=== PATIENT | female | born 1985 | race Caucasian/White ===

== ENCOUNTER 2022-07-10 19:55 | Inpatient (IN) ==
[2022-07-10] MEDS ORDERED: LORazepam 2 MG/1 ML VIAL IV STA (20:14)
[2022-07-10] MEDS ORDERED: ONDANSETRON 4 MG/2 ML VIAL IV STA (20:14)
[2022-07-10] MEDS ORDERED: methylPREDNISolone SOD SUC 125 MG/2 ML VIAL IV STA (20:14)
[2022-07-10] MEDS ORDERED: ALBUTEROL/IPRATROPIUM 3 ML NEB RESP TX STA (20:14)
[2022-07-10] MEDS ORDERED: PIPERACILLIN/TAZOBACTAM 3,375 MG in SODIUM CHLORIDE 0.9% 100 ML IV STA (20:55)
[2022-07-10 21:05] LABS: Basophils % 0.2 % (0.0-0.8); Eosinophils # 0.1 10*3/uL (0.0-0.87); Eosinophils % 0.6 % (0.00-10.9); Hematocrit 33.7 VOL% (35.7-47.0); Immature Granulocytes % 0.4 %; Immature Granulocytes Absolute 0.03 #; Lymphocytes # 1.3 10*3/uL (1.4-4.0); Lymphocytes % 15.4 % (21.3-54.2); Mean Corpuscular HGB Conc 32.6 GM/DL (32-36); Mean Corpuscular Volume 85.8 FL (87-102); Mean Platelet Volume 9.1 FL (9.6-12.0); Monocytes # 0.4 10*3/uL (0.11-0.8); Neutrophils % 78.4 % (38.7-73.9); Platelet Count 284 T/CUMM (130-400); Red Blood Count 3.93 MC/CUMM (3.8-5.5); Red Cell Distribution Width 15.9 % (9.3-17.3); White Blood Count 8.2 T/CUMM (4-12)
[2022-07-10 21:29] LABS: Albumin 2.7 G/DL (3.4-5.0); Bilirubin,Total 0.7 MG/DL (0.20-1.00); Osmolality,Calculated 276.4 MOS/KG (273-304); Potassium 3.2 MMOL/L (3.5-5.1); Total Protein 6.8 G/DL (6.4-8.2)
[2022-07-10 21:33] LABS: Bacteria,Urine Many /HPF (Few); Mucus,Urine Occasional /LPF (Occasional); Squamous Epithelial Cell,Urine Occasional /HPF (0-10)
[2022-07-10 21:35] LABS: Urine Color Yellow (Yellow)
[2022-07-10 21:36] LABS: Glucose,Urine (UA) Negative (Negative); Ketones,Urine 15 mg/dL (Negative); Protein,Urine Negative (Negative); Urine Appearance Clear (Clear); Urine pH 6.5 (4.5-8.0)
[2022-07-10 21:37] LABS: Bilirubin,Urine Negative (Negative); Blood, Urine Negative (Negative); Nitrite,Urine Negative (Negative)
[2022-07-10] MEDS ORDERED: POTASSIUM CHLORIDE 20 MEQ TABLET PO STA (21:39)
[2022-07-10 22:00] LABS: HIV Antigen/Antibody Result Nonreactive (Nonreactive)
[2022-07-10] MEDS ORDERED: FUROSEMIDE 40 MG/4 ML VIAL IV STA (22:00)
[2022-07-10] MEDS ORDERED: LACTATED RINGERS 500 ML IV ONE (22:07)
[2022-07-10] MEDS ORDERED: POTASSIUM BICARB EFFERVESCENT 20 MEQ TAB.EFF PO STA (22:07)
[2022-07-10 22:09] LABS: Barbiturates Screen,Urine Negative (Negative); Benzodiazepines Screen,Urine Negative (Negative); Cannabinoid Screen,Urine Positive (Negative); Opiate Screen,Urine Negative (Negative); Phencyclidine Screen,Urine Negative (Negative)
[2022-07-10] MEDS ORDERED: POTASSIUM BICARB EFFERVESCENT 20 MEQ TAB.EFF ONE (22:09)
[2022-07-10] MEDS ORDERED: ENOXAPARIN 100 MG/ML SYRINGE SUBCUT STA (23:16)
[2022-07-10] MEDS ORDERED: ENOXAPARIN 60 MG/0.6 ML SYRINGE ONE (23:17)
[2022-07-11] MEDS ORDERED: ZALEPLON 5 MG CAPSULE PO PRN (00:06)
[2022-07-11] MEDS ORDERED: ONDANSETRON 4 MG/2 ML VIAL IV PRN (00:06)
[2022-07-11] MEDS ORDERED: diphenhydrAMINE CAP 25 MG CAPSULE PO PRN (00:06)
[2022-07-11] MEDS ORDERED: hydrALAZINE 20 MG/1 ML VIAL IV PRN (00:06)
[2022-07-11] MEDS ORDERED: NICOTINE 21 MG/24 HR PATCH TRANSDERM PRN (00:06)
[2022-07-11] MEDS: AZITHROMYCIN INJ 500 MG in SODIUM CHLORIDE 0.9% 250 ML IV SCH (00:40)
[2022-07-11] MEDS: ALBUTEROL/IPRATROPIUM 3 ML NEB RESP TX SCH ×4 (01:21→19:45)
[2022-07-11] MEDS: SODIUM CHLORIDE 0.9% 1,000 ML IV SCH ×2 (01:25→10:12)
[2022-07-11] MEDS: guaiFENesin/DM ER 600-30 MG TABLET PO PRN ×5 (02:01→21:29)
[2022-07-11 04:58] LABS: Hematocrit 32.8 VOL% (35.7-47.0); Hemoglobin 10.4 GM/DL (12.0-16.0); Immature Granulocytes % 0.5 %; Immature Granulocytes Absolute 0.04 #; Lymphocytes # 0.3 10*3/uL (1.4-4.0); Lymphocytes % 4.4 % (21.3-54.2); Mean Corpuscular HGB Conc 31.7 GM/DL (32-36); Mean Corpuscular Volume 88.6 FL (87-102); Mean Platelet Volume 9.1 FL (9.6-12.0); Monocytes # 0.1 10*3/uL (0.11-0.8); Monocytes % 1.1 % (1.7-12.7); Platelet Count 278 T/CUMM (130-400); White Blood Count 7.5 T/CUMM (4-12)
[2022-07-11 05:15] LABS: Calcium 8.1 MG/DL (8.5-10.1); Osmolality,Calculated 284.4 MOS/KG (273-304)
[2022-07-11 05:33] LABS: Hypochromia Slight; Lymphocytes 1 % (20-55); Microcytosis Slight; Platelet Estimate Adequate; Total Cells Counted 100
[2022-07-11] MEDS: PIPERACILLIN/TAZOBACTAM 4,500 MG in SODIUM CHLORIDE 0.9% 100 ML IV SCH ×3 (06:14→21:28)
[2022-07-11] MEDS: ENOXAPARIN 40 MG/0.4 ML SYRINGE SUBCUT SCH (08:40)
[2022-07-11] MEDS: MORPHINE 2 MG/1 ML SYRINGE IV PRN ×2 (08:41→14:01)
[2022-07-11] MEDS: DOCUSATE SODIUM 100 MG CAPSULE PO SCH ×2 (08:41→21:28)
[2022-07-11] MEDS: PANTOPRAZOLE 40 MG TABLET PO SCH (08:41)
[2022-07-11] MEDS ORDERED: POTASSIUM CHLORIDE 20 MEQ TABLET PO ONE (09:43)
[2022-07-11 10:02] LABS: % Iron Saturation 5.4 % (18-50)
[2022-07-11] MEDS ORDERED: ZINC OXIDE PASTE 113 GM TUBE TOP PRN (11:34)
[2022-07-11] MEDS: BENZONATATE 100 MG CAPSULE PO SCH ×2 (15:43→21:29)
[2022-07-12] MEDS: ALBUTEROL/IPRATROPIUM 3 ML NEB RESP TX SCH ×4 (00:20→22:37)
[2022-07-12] MEDS: AZITHROMYCIN INJ 500 MG in SODIUM CHLORIDE 0.9% 250 ML IV SCH (02:34)
[2022-07-12] MEDS: MORPHINE 2 MG/1 ML SYRINGE IV PRN ×3 (02:41→10:18)
[2022-07-12] MEDS: LORazepam 2 MG/1 ML VIAL IV PRN ×3 (04:59→09:55)
[2022-07-12 05:04] LABS: Basophils % 0.1 % (0.0-0.8); Hematocrit 32.3 VOL% (35.7-47.0); Hemoglobin 9.9 GM/DL (12.0-16.0); Immature Granulocytes Absolute 0.22 #; Lymphocytes # 1.3 10*3/uL (1.4-4.0); Lymphocytes % 6.2 % (21.3-54.2); Mean Corpuscular HGB Conc 30.7 GM/DL (32-36); Mean Corpuscular Volume 92.6 FL (87-102); Monocytes # 1.1 10*3/uL (0.11-0.8); Monocytes % 5.2 % (1.7-12.7); Neutrophils % 87.5 % (38.7-73.9); Platelet Count 384 T/CUMM (130-400); Red Blood Count 3.49 MC/CUMM (3.8-5.5); Red Cell Distribution Width 16.8 % (9.3-17.3); White Blood Count 21.3 T/CUMM (4-12)
[2022-07-12] MEDS: PIPERACILLIN/TAZOBACTAM 4,500 MG in SODIUM CHLORIDE 0.9% 100 ML IV SCH (05:11)
[2022-07-12 05:26] LABS: Albumin 2.5 G/DL (3.4-5.0); Bilirubin,Direct 0.15 MG/DL (0.0-0.20); Bilirubin,Indirect 0.3 MG/DL (0.0-1.0); Bilirubin,Total 0.4 MG/DL (0.20-1.00); Calcium 7.9 MG/DL (8.5-10.1); Osmolality,Calculated 276.5 MOS/KG (273-304); Potassium 3.8 MMOL/L (3.5-5.1); Total Protein 6.8 G/DL (6.4-8.2)
[2022-07-12 05:38] LABS: Hypochromia Slight; Lymphocytes 7 % (20-55); Platelet Estimate Adequate; Total Cells Counted 100
[2022-07-12] MEDS ORDERED: SODIUM CHLORIDE 0.9% 1,000 ML IV ONE (07:29)
[2022-07-12 07:57] LABS: Arterial Base Excess iSTAT -4 MMOL/L (-2.5-2.5); Arterial Bicarbonate iSTAT 21.4 MMOL/L (20-26); Arterial O2 Saturation iSTAT 97 % (95-100); Arterial PCO2 iSTAT 39 MM HG (35-48); Arterial PO2 iSTAT 99 MM HG (80-95); Arterial Total CO2 iSTAT 23 MMO/L (23-27); Arterial pH iSTAT 7.344 (7.35-7.45)
[2022-07-12] MEDS: SODIUM CHLORIDE 0.9% 1,000 ML IV SCH ×2 (08:20→10:10)
[2022-07-12 08:33] VITALS: BP 134/95
[2022-07-12] MEDS: ENOXAPARIN 40 MG/0.4 ML SYRINGE SUBCUT SCH (08:35)
[2022-07-12] MEDS: BENZONATATE 100 MG CAPSULE PO SCH ×3 (08:35→20:50)
[2022-07-12] MEDS: DOCUSATE SODIUM 100 MG CAPSULE PO SCH ×2 (08:36→20:50)
[2022-07-12] MEDS: PANTOPRAZOLE 40 MG TABLET PO SCH (08:36)
[2022-07-12] MEDS ORDERED: LORazepam 2 MG/1 ML VIAL ONE (09:53)
[2022-07-12] MEDS: VANCOMYCIN INJ 1,000 MG in SODIUM CHLORIDE 0.9% 250 ML IV SCH ×2 (09:59→20:50)
[2022-07-12] MEDS ORDERED: HALOPERIDOL 5 MG/ML AMP IM PRN ×2 (10:15→10:51)
[2022-07-12] MEDS: DIAZEPAM 5 MG TABLET PO SCH ×4 (10:18→23:51)
[2022-07-12] MEDS ORDERED: HALOPERIDOL 5 MG/ML AMP IV PRN (10:42)
[2022-07-12] MEDS ORDERED: FUROSEMIDE 40 MG/4 ML VIAL IV ONE (10:45)
[2022-07-12] MEDS ORDERED: CALCIUM GLUCONATE RIDER 2,000 MG/100 ML PREMIX IV ONE (11:00)
[2022-07-12 11:37] LABS: Bilirubin,Urine Negative (Negative); Blood, Urine Negative (Negative); Glucose,Urine (UA) Negative (Negative); Ketones,Urine 15 mg/dL (Negative); Nitrite,Urine Negative (Negative); Protein,Urine 30 mg/dL (Negative); Urine Appearance Clear (Clear); Urine Color Yellow (Yellow); Urine Specific Gravity >= 1.030 (1.001-1.035)
[2022-07-12 11:45] LABS: Bacteria,Urine Occasional /HPF (Few); RBC,Urine 1 /HPF (0-4); Squamous Epithelial Cell,Urine Occasional /HPF (0-10)
[2022-07-12] MEDS: PIPERACILLIN/TAZOBACTAM 3,375 MG in SODIUM CHLORIDE 0.9% 100 ML IV SCH ×2 (12:53→20:50)
[2022-07-13] MEDS: ALBUTEROL/IPRATROPIUM 3 ML NEB RESP TX SCH ×4 (00:16→19:27)
[2022-07-13] MEDS: DIAZEPAM 5 MG TABLET PO SCH ×6 (03:53→23:43)
[2022-07-13 05:44] LABS: Calcium 7.7 MG/DL (8.5-10.1); Osmolality,Calculated 278.3 MOS/KG (273-304); Potassium 3.3 MMOL/L (3.5-5.1)
[2022-07-13] MEDS: PIPERACILLIN/TAZOBACTAM 3,375 MG in SODIUM CHLORIDE 0.9% 100 ML IV SCH ×3 (05:44→20:40)
[2022-07-13 06:17] LABS: Basophils % 0.3 % (0.0-0.8); Eosinophils # 0.2 10*3/uL (0.0-0.87); Eosinophils % 2.5 % (0.00-10.9); Hematocrit 34.3 VOL% (35.7-47.0); Hemoglobin 10.9 GM/DL (12.0-16.0); Immature Granulocytes % 0.6 %; Immature Granulocytes Absolute 0.04 #; Lymphocytes # 1.7 10*3/uL (1.4-4.0); Lymphocytes % 23.8 % (21.3-54.2); Mean Corpuscular HGB Conc 31.8 GM/DL (32-36); Mean Corpuscular Volume 88.4 FL (87-102); Mean Platelet Volume 8.7 FL (9.6-12.0); Monocytes # 0.4 10*3/uL (0.11-0.8); Monocytes % 5.1 % (1.7-12.7); Neutrophils % 67.7 % (38.7-73.9); Platelet Count 317 T/CUMM (130-400); Red Blood Count 3.88 MC/CUMM (3.8-5.5); Red Cell Distribution Width 16.7 % (9.3-17.3); White Blood Count 7.2 T/CUMM (4-12)
[2022-07-13] MEDS ORDERED: MAGNESIUM SULF RIDER 4 GM/100 ML PREMIX IV PRN (06:27)
[2022-07-13] MEDS ORDERED: MAGNESIUM SULF RIDER 2 GM/50 ML PREMIX IV PRN (06:27)
[2022-07-13] MEDS ORDERED: MAGNESIUM SULF RIDER 4 GM/100 ML PREMIX IV ONE (07:11)
[2022-07-13] MEDS: ENOXAPARIN 40 MG/0.4 ML SYRINGE SUBCUT SCH (08:40)
[2022-07-13] MEDS: VANCOMYCIN INJ 1,000 MG in SODIUM CHLORIDE 0.9% 250 ML IV SCH ×2 (08:40→20:39)
[2022-07-13] MEDS ORDERED: ENOXAPARIN 40 MG/0.4 ML SYRINGE SUBCUT SCH (09:00)
[2022-07-13] MEDS ORDERED: MAGNESIUM SULF RIDER 2 GM/50 ML PREMIX IV ONE (09:35)
[2022-07-13] MEDS: DOCUSATE SODIUM 100 MG CAPSULE PO SCH ×2 (13:53→20:20)
[2022-07-13] MEDS: POTASSIUM CHLORIDE 20 MEQ TABLET PO SCH ×3 (13:53→20:38)
[2022-07-13] MEDS: BENZONATATE 100 MG CAPSULE PO SCH ×3 (13:54→20:20)
[2022-07-13] MEDS: PANTOPRAZOLE 40 MG TABLET PO SCH (13:54)
[2022-07-13] MEDS: AZITHROMYCIN 250 MG TABLET PO SCH (13:54)
[2022-07-14] MEDS: POTASSIUM CHLORIDE 20 MEQ TABLET PO SCH ×2 (00:18→03:51)
[2022-07-14] MEDS: ALBUTEROL/IPRATROPIUM 3 ML NEB RESP TX SCH ×4 (00:20→18:50)
[2022-07-14] MEDS: DIAZEPAM 5 MG TABLET PO SCH ×2 (02:14→08:37)
[2022-07-14 04:16] LABS: Basophils % 0.1 % (0.0-0.8); Eosinophils # 0.3 10*3/uL (0.0-0.87); Eosinophils % 4.5 % (0.00-10.9); Hematocrit 36.8 VOL% (35.7-47.0); Hemoglobin 11.3 GM/DL (12.0-16.0); Immature Granulocytes % 0.3 %; Immature Granulocytes Absolute 0.02 #; Lymphocytes # 1.5 10*3/uL (1.4-4.0); Mean Corpuscular HGB Conc 30.7 GM/DL (32-36); Mean Platelet Volume 8.7 FL (9.6-12.0); Monocytes # 0.4 10*3/uL (0.11-0.8); Monocytes % 5.1 % (1.7-12.7); Platelet Count 315 T/CUMM (130-400); Red Blood Count 4.09 MC/CUMM (3.8-5.5); Red Cell Distribution Width 16.5 % (9.3-17.3); White Blood Count 6.9 T/CUMM (4-12)
[2022-07-14 04:41] LABS: Calcium 7.7 MG/DL (8.5-10.1); Osmolality,Calculated 272.7 MOS/KG (273-304); Potassium 4.4 MMOL/L (3.5-5.1)
[2022-07-14] MEDS: PIPERACILLIN/TAZOBACTAM 3,375 MG in SODIUM CHLORIDE 0.9% 100 ML IV SCH ×3 (05:05→21:18)
[2022-07-14] MEDS: PANTOPRAZOLE 40 MG TABLET PO SCH (08:38)
[2022-07-14] MEDS: ENOXAPARIN 40 MG/0.4 ML SYRINGE SUBCUT SCH (08:38)
[2022-07-14] MEDS: AZITHROMYCIN 250 MG TABLET PO SCH (08:38)
[2022-07-14] MEDS: DOCUSATE SODIUM 100 MG CAPSULE PO SCH ×2 (08:38→21:18)
[2022-07-14] MEDS: BENZONATATE 100 MG CAPSULE PO SCH ×3 (08:38→21:15)
[2022-07-14] MEDS: DIAZEPAM 5 MG TABLET PO PRN ×2 (09:10→18:01)
[2022-07-14] MEDS: VANCOMYCIN INJ 1,000 MG in SODIUM CHLORIDE 0.9% 250 ML IV SCH (11:06)
[2022-07-15] MEDS: ALBUTEROL/IPRATROPIUM 3 ML NEB RESP TX SCH ×4 (00:05→19:01)
[2022-07-15 01:01] LABS: Basophils % 0.3 % (0.0-0.8); Eosinophils # 0.3 10*3/uL (0.0-0.87); Eosinophils % 4.2 % (0.00-10.9); Hematocrit 35.8 VOL% (35.7-47.0); Hemoglobin 11.4 GM/DL (12.0-16.0); Immature Granulocytes % 0.3 %; Immature Granulocytes Absolute 0.02 #; Lymphocytes # 1.2 10*3/uL (1.4-4.0); Lymphocytes % 14.9 % (21.3-54.2); Mean Corpuscular HGB Conc 31.8 GM/DL (32-36); Mean Platelet Volume 8.6 FL (9.6-12.0); Monocytes # 0.4 10*3/uL (0.11-0.8); Monocytes % 4.4 % (1.7-12.7); Neutrophils % 75.9 % (38.7-73.9); Platelet Count 339 T/CUMM (130-400); Red Blood Count 4.07 MC/CUMM (3.8-5.5); Red Cell Distribution Width 15.8 % (9.3-17.3); White Blood Count 7.9 T/CUMM (4-12)
[2022-07-15] MEDS: VANCOMYCIN INJ 1,000 MG in SODIUM CHLORIDE 0.9% 250 ML IV SCH ×3 (01:26→17:44)
[2022-07-15] MEDS: PIPERACILLIN/TAZOBACTAM 3,375 MG in SODIUM CHLORIDE 0.9% 100 ML IV SCH ×3 (05:17→20:10)
[2022-07-15 06:22] LABS: Calcium 8.2 MG/DL (8.5-10.1); Osmolality,Calculated 267.1 MOS/KG (273-304); Potassium 4.2 MMOL/L (3.5-5.1)
[2022-07-15] MEDS: ENOXAPARIN 40 MG/0.4 ML SYRINGE SUBCUT SCH (09:53)
[2022-07-15] MEDS: PANTOPRAZOLE 40 MG TABLET PO SCH (09:53)
[2022-07-15] MEDS: DOCUSATE SODIUM 100 MG CAPSULE PO SCH ×2 (09:53→20:09)
[2022-07-15] MEDS: BENZONATATE 100 MG CAPSULE PO SCH ×3 (09:54→20:09)
[2022-07-15] MEDS: AZITHROMYCIN 250 MG TABLET PO SCH (09:54)
[2022-07-16] MEDS: ALBUTEROL/IPRATROPIUM 3 ML NEB RESP TX SCH ×2 (00:36→07:04)
[2022-07-16] MEDS: DIAZEPAM 5 MG TABLET PO PRN ×2 (00:57→07:18)
[2022-07-16] MEDS: VANCOMYCIN INJ 1,000 MG in SODIUM CHLORIDE 0.9% 250 ML IV SCH (01:59)
[2022-07-16] MEDS: PIPERACILLIN/TAZOBACTAM 3,375 MG in SODIUM CHLORIDE 0.9% 100 ML IV SCH (05:32)
[2022-07-16 06:57] LABS: Basophils % 0.3 % (0.0-0.8); Eosinophils # 0.4 10*3/uL (0.0-0.87); Eosinophils % 5.8 % (0.00-10.9); Hematocrit 39.8 VOL% (35.7-47.0); Hemoglobin 12.6 GM/DL (12.0-16.0); Immature Granulocytes % 0.3 %; Immature Granulocytes Absolute 0.02 #; Lymphocytes # 1.3 10*3/uL (1.4-4.0); Lymphocytes % 20.7 % (21.3-54.2); Mean Corpuscular HGB Conc 31.7 GM/DL (32-36); Mean Corpuscular Volume 87.7 FL (87-102); Mean Platelet Volume 8.4 FL (9.6-12.0); Monocytes # 0.5 10*3/uL (0.11-0.8); Monocytes % 7.5 % (1.7-12.7); Neutrophils % 65.4 % (38.7-73.9); Platelet Count 426 T/CUMM (130-400); Red Blood Count 4.54 MC/CUMM (3.8-5.5); Red Cell Distribution Width 15.9 % (9.3-17.3)
[2022-07-16 07:38] LABS: Alanine Aminotransferase 14 U/L (13-56); Albumin 2.8 G/DL (3.4-5.0); Alkaline Phosphatase 100 U/L (45-117); Aspartate Amino Transferase 27 U/L (0-37); Bilirubin,Total < 0.39 MG/DL (0.20-1.00); Blood Urea Nitrogen 5 MG/DL (7-18); Calcium 8.7 MG/DL (8.5-10.1); Carbon Dioxide 27 MMOL/L (21-32); Chloride 105 MMOL/L (98-107); Glucose 97 MG/DL (74-106); Osmolality,Calculated 269.8 MOS/KG (273-304); Potassium 3.1 MMOL/L (3.5-5.1); Sodium 137 MMOL/L (136-145); Total Protein 8.1 G/DL (6.4-8.2)
== END 2022-07-16 07:22 | disposition left against medical advice (07) | DRG 139 ==
LOC: N.ED 19:55 → SUATTDRO 07-11 00:06 → N.TELEN 07-11 00:06 → N.CC 07-12 09:44
PROVIDERS: ADMIT Emergency Medicine; ATTEND Family Medicine

== ENCOUNTER 2022-08-30 08:27 | Observation (INO) ==
[2022-08-30] MEDS ORDERED: LORazepam 2 MG/1 ML VIAL IV STA (08:32)
[2022-08-30] MEDS ORDERED: diphenhydrAMINE 50 MG/1 ML VIAL IV STA (08:33)
[2022-08-30] MEDS ORDERED: HALOPERIDOL 5 MG/ML AMP IV STA (08:33)
[2022-08-30 08:47] LABS: Basophils % 0.4 % (0.0-0.8); Hematocrit 41.9 VOL% (35.7-47.0); Hemoglobin 13.4 GM/DL (12.0-16.0); Immature Granulocytes % 0.5 %; Immature Granulocytes Absolute 0.05 #; Lymphocytes # 0.9 10*3/uL (1.4-4.0); Mean Corpuscular Volume 89.1 FL (87-102); Mean Platelet Volume 8.8 FL (9.6-12.0); Monocytes # 0.3 10*3/uL (0.11-0.8); Monocytes % 2.7 % (1.7-12.7); Neutrophils % 88.4 % (38.7-73.9); Platelet Count 475 T/CUMM (130-400); Red Cell Distribution Width 14.8 % (9.3-17.3); White Blood Count 10.84 T/CUMM (4-12)
[2022-08-30 09:05] LABS: Alanine Aminotransferase 10 U/L (13-56); Albumin 3.7 G/DL (3.4-5.0); Alkaline Phosphatase 124 U/L (45-117); Aspartate Amino Transferase 16 U/L (0-37); Bilirubin,Total < 0.39 MG/DL (0.20-1.00); Blood Urea Nitrogen 10 MG/DL (7-18); Calcium 9.3 MG/DL (8.5-10.1); Carbon Dioxide 25 MMOL/L (21-32); Chloride 105 MMOL/L (98-107); Glucose 164 MG/DL (74-106); Osmolality,Calculated 281.4 MOS/KG (273-304); Potassium 4.5 MMOL/L (3.5-5.1); Sodium 140 MMOL/L (136-145); Total Protein 8.9 G/DL (6.4-8.2)
[2022-08-30 09:09] LABS: Salicylate 6.3 MG/DL (2.8-20)
[2022-08-30 09:10] LABS: Acetaminophen < 2.0 UG/ML (10-30)
[2022-08-30 09:20] LABS: Bacteria,Urine Occasional /HPF (Few); RBC,Urine <1 /HPF (0-4); Squamous Epithelial Cell,Urine Occasional /HPF (0-10)
[2022-08-30 09:22] LABS: Bilirubin,Urine Negative (Negative); Blood, Urine Trace mg/dL (Negative); Glucose,Urine (UA) Negative (Negative); Ketones,Urine Negative (Negative); Nitrite,Urine Negative (Negative); Protein,Urine 30 mg/dL (Negative); Urine Appearance Clear (Clear); Urine Color Yellow (Yellow); Urine Urobilinogen 0.2 eU/dL (<2.0)
[2022-08-30 09:44] LABS: Barbiturates Screen,Urine Negative (Negative); Benzodiazepines Screen,Urine Negative (Negative); Cannabinoid Screen,Urine Positive (Negative); Opiate Screen,Urine Negative (Negative); Phencyclidine Screen,Urine Negative (Negative)
[2022-08-30] MEDS ORDERED: ONDANSETRON 4 MG/2 ML VIAL IV PRN (13:08)
[2022-08-30] MEDS ORDERED: ACETAMINOPHEN 325 MG TABLET PO PRN (13:08)
[2022-08-30] MEDS ORDERED: ZIPRASIDONE 20 MG/1 ML VIAL IM PRN (13:46)
[2022-08-30] MEDS ORDERED: QUEtiapine 25 MG TABLET PO PRN (13:47)
[2022-08-30] MEDS ORDERED: ENOXAPARIN 40 MG/0.4 ML SYRINGE SUBCUT SCH (14:00)
[2022-08-30] MEDS: LACTATED RINGERS 1,000 ML IV SCH (15:52)
[2022-08-30] MEDS: LORazepam 2 MG/1 ML VIAL IV PRN ×2 (15:53→20:00)
[2022-08-31] MEDS: LACTATED RINGERS 1,000 ML IV SCH ×2 (00:55→11:04)
[2022-08-31] MEDS: LORazepam 2 MG/1 ML VIAL IV PRN ×2 (01:06→07:09)
[2022-08-31 05:19] LABS: Basophils % 0.6 % (0.0-0.8); Eosinophils # 0.1 10*3/uL (0.0-0.87); Eosinophils % 0.9 % (0.00-10.9); Hematocrit 33.4 VOL% (35.7-47.0); Hemoglobin 10.9 GM/DL (12.0-16.0); Immature Granulocytes % 0.4 %; Immature Granulocytes Absolute 0.02 #; Lymphocytes # 2.2 10*3/uL (1.4-4.0); Lymphocytes % 39.5 % (21.3-54.2); Mean Corpuscular HGB Conc 32.6 GM/DL (32-36); Mean Corpuscular Volume 88.1 FL (87-102); Mean Platelet Volume 8.6 FL (9.6-12.0); Monocytes # 0.4 10*3/uL (0.11-0.8); Monocytes % 7.9 % (1.7-12.7); Neutrophils % 50.7 % (38.7-73.9); Platelet Count 302 T/CUMM (130-400); Red Blood Count 3.79 MC/CUMM (3.8-5.5); Red Cell Distribution Width 14.8 % (9.3-17.3); White Blood Count 5.44 T/CUMM (4-12)
[2022-08-31 05:44] LABS: Calcium 8.6 MG/DL (8.5-10.1); Osmolality,Calculated 271.7 MOS/KG (273-304); Potassium 3.4 MMOL/L (3.5-5.1)
[2022-08-31 05:50] LABS: Platelet Estimate Normal
[2022-08-31 05:51] LABS: Anisocytosis 1+
[2022-08-31] MEDS ORDERED: POTASSIUM CHLORIDE 20 MEQ TABLET PO ONE (09:23)
[2022-08-31 12:06] VITALS: BP 92/61
== END 2022-08-31 13:28 | disposition home or self-care (01) ==
LOC: EDBD → EDUNIT# → N.EDINP 08:27 → N.ED 08:27 → N.3E 13:51
PROVIDERS: ADMIT Hospitalist; ATTEND Hospitalist